=== PATIENT | male | born 1970 | race Caucasian/White ===

== ENCOUNTER 2017-08-10 20:51 | Inpatient (IN) | payer SELFPAY ==
[~2017-08-10] VITALS: Ht 172.7 cm; Wt 71.0 kg
[2017-08-11] MEDS ORDERED: diphenhydrAMINE HCL 50 MG CAP - HS PRN PO (02:15)
[2017-08-11] MEDS ORDERED: diphenhydrAMINE HCL 50 MG/ML VIAL - HS PRN IM (02:15)
[2017-08-11] MEDS ORDERED: ACETAMINOPHEN 325 MG TAB PO PRN (02:15)
[2017-08-11] MEDS ORDERED: hydrOXYzine HCL 50 MG TAB PO PRN (02:15)
[2017-08-11] MEDS ORDERED: LORazepam 1 MG TAB PO PRN (02:15)
[2017-08-11] MEDS ORDERED: LORazepam 2 MG/ML VIAL IM PRN (02:15)
[2017-08-11] MEDS ORDERED: ALUMINUM/MAGNESIUM/SIMETH 30 ML CUP PO PRN (02:15)
[2017-08-11] MEDS ORDERED: MAGNESIUM HYDROXIDE SUSP 30 ML CUP PO PRN (02:15)
[2017-08-11 02:20] VITALS: BP 107/70; PULSE 115; RESP 16; TEMP 97.1; O2SAT 98
[2017-08-11] MEDS: NICOTINE 21 MG/24 HR PATCH T-DERMAL SCH (09:00)
--- NOTE | 2017-08-11 11:46 | HHI.HP ---
Provisional Diagnosis Admission Date Aug 11, 2017 at 01:20 [place]. 1. Adjustment disorder with mixed disturbance of emotions and conduct 2. Polysubstance abuse [place]. Deferred Certification of Person's Competence To Provide Express and Informed Consent I have personally examined Thong Daugherty , a person being served at [facility] on, Aug 11, 2017 11:46. Express and informed consent means consent voluntarily given in writing, by a competent person, after sufficient explanation and disclosure of the subject matter involved to enable the person to make a knowing and willful decision without any element of force, fraud, deceit, duress, or other form of constraint or coercion. This person is 18 years of age or older, is not now known to be incompetent to consent to treatment with a guardian advocate, and does not have a health care surrogate or proxy currently making medical treatment decisions. I have found this person to be one of the following: [x] Competent to provide express and informed consent, as defined above, for voluntary admission to this facility and is competent to provide express and informed consent for treatment. He/she has the consistent capacity to make well reasoned, willful, and knowing decisions concerning his or her medical or mental health treatment. The person fully and consistently understands the purpose of the admission for examination/placement and is fully capable of personally exercising all rights assured under [place] Incompetent to provide express and informed consent to voluntary admission, and this is incompetent to provide express and informed consent to treatment. The person must be transferred to involuntary status and a petition for a guardian advocate filed with the Circuit Court. [] Refusing to provide express and informed consent to voluntary admission but is competent to provide express and informed consent for treatment. The person must be discharged or transferred to involuntary status. Form shall be completed within 24 hours of a person's arrival at the receiving facility and filed in the clinical record of each person: 1. Admitted on a voluntary basis 2. Permitted to provide express and informed consent to his/her own treatment 3. Allowed to transfer from involuntary to voluntary status 4. Prior to permitting a person to consent to his or her own treatment after having been previously found incompetent to consent to treatment. History of Present Illness Capacity: Has Capacity Psych Chief Complaint: self-injurious behavior HPI Mr. Daugherty is a 46-year-old male with no reported past psychiatric history who presents in transfer from [facility] under a Shields act. Documentation from outside hospital reviewed. Narrative is somewhat convoluted but apparently the patient was Shields acted by law enforcement on 07/27 because he "stated he could see someone through the glass being murdered with 3 little kids trying to help the injured person." Apparently, the patient was being transferred to an inpatient psychiatric unit when he eloped and ran into a house and cut himself on his neck, forearms, chest and legs. Patient was subsequently admitted to the medical unit at [facility]. Reviewing our electronic medical record, I note this is patient's first visit to [facility]. Patient seen and examined with nurse. Chart reviewed. Case discussed with nursing staff. On my examination today, the patient is clinically sober. He reports that his presenting psychosis was secondary to use of a substance that he thought was Cailin but now suspects was not. He says that this substance "made me think someone was getting killed, so I called the expander machine operator who Alyson acted me. I thought the killers were in the hospital." He reports that as he was being transported to the inpatient unit as noted above he became increasingly convinced that he was being transported to a facility where he would be tortured and murdered and so he eloped from the transport and "ran into a house , picked up a knife, I thought the police were impostors, and so I cut myself to try to bleed out." He denies any suicidal or homicidal ideation, intent or plan on direct questioning now. He is quite remorseful for his behavior. He was apparently started on some Seroquel at the outside hospital, but he is not sure if he needs it any longer and would like to be on as few medications as possible. He denies any audiovisual hallucinations. I can elicit no delusional material presently. There is no evidence of any impairment in reality construction at this time. Mood is stable, and I can elicit no depressive or hypomanic/manic symptoms. Remainder of the psychiatric ROS is negative. No acute physical complaints. Past psychiatric history: Patient denies a history of psychiatric diagnosis. He denies a history of inpatient or outpatient psychiatric treatment. He denies a history of previous suicide attempts or violent behavior. Family history: Patient denies any family history of serious mental illness or suicide. Chemical dependency history: The patient abuses MDMA as well as cannabis and occasional cocaine. He also drinks 2 beers a day. No other substance use reported. Social history: The patient is . He has a daughter. 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 He denies any history. Denies any legal history. Denies any access to guns or firearms. He is a [employer]. He denies any history of physical, verbal or sexual abuse. Past Family Social History Coded Allergies: No Known Allergies (Unverified , 08/11/17) Past Medical History Patient denies any past medical history Current Medications Medications (Trade) Dose Ordered Sig/Julianne Route Start Time Stop Time Status Last Admin (Ativan) 1 mg Q6H PRN PO 08/11/17 02:15 (Ativan Inj) 1 mg Q6H PRN IM 08/11/17 02:15 (Atarax) 50 mg Q6H PRN PO 08/11/17 02:15 (Benadryl) 50 mg HS PRN PO 08/11/17 02:15 (Benadryl Inj) 50 mg HS PRN IM 08/11/17 02:15 (Tylenol) 650 mg Q4H PRN PO 08/11/17 02:15 (Milk Of Magnesia Liq) 30 ml DAILY PRN PO 08/11/17 02:15 (Mag-Al Plus Susp Liq) 30 ml Q6H PRN PO 08/11/17 02:15 (Habitrol 21 Mg Patch.24 Hr) 1 patch DAILY T-DERMAL 08/11/17 09:00 Miscellaneous Information 1 HS T-DERMAL 08/11/17 21:00 Patient's Strengths (min. 2) In a monitored setting. Verbally fluent. Physical Exam Physical exam completed by provider at outside hospital. On my examination today, the patient appears to be in no acute physical distress. No motor abnormalities noted. No signs of intoxication or withdrawal noted. Numerous healing lacerations noted on neck, bilateral forearms, chest and legs. Laboratories and vitals signs reviewed: Vital Signs Vital Signs Date Time Temp Pulse Resp B/P (MAP) Pulse Ox O2 Delivery O2 Flow Rate FiO2 08/11/17 02:20 97.1 115 16 107/70 (82) 98 Lab Results Laboratories from outside hospital reviewed: BMP unremarkable. CBC reveals mild leukocytosis at 11.8. 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 Mental Status Examination Appearance: Appropriate Consciousness: Alert Orientation: x4 Motor Activity: Normal gait Speech: Unremarkable Language: Adequate Fund of Knowledge: Adequate Attention and Concentration: Adequate Memory: Unremarkable Mood: Appropriate Affect: Appropriate Thought Process & Associations: Intact Thought Content: Appropriate Hallucination Type: None Delusion Type: None Suicidal Ideation: No Suicidal Plan: No Suicidal Intention: No Homicidal Ideation: No Homicidal Plan: No Homicidal Intention: No Mental Status Exam Remarks Insight and judgment are presently unclear. Assessment & Plan Problem List: (1) Adjustment disorder with mixed disturbance of emotions and conduct ICD Codes: F43.25 - Adjustment disorder with mixed disturbance of emotions and conduct (2) Polysubstance abuse ICD Codes: F19.10 - Other psychoactive substance abuse, uncomplicated Assessment & Plan 46-year-old male with psychiatric history as detailed above who presents in transfer from outside hospital under a Shields act. On my examination today, the patient reports that his delusional beliefs prior to admission and presenting self injury were caused by use of a substance that he thought was MDMA. Presently, I cannot appreciate any signs or symptoms consistent with a mental illness as defined under the Shields act, and I think the patient's explanation for his behavior is quite possibly the correct one. Patient is willing to remain on the inpatient psychiatric unit for observation and would like to try to taper his Seroquel as he is not sure if he really needs this medication. I will plan to admit the patient to the inpatient psychiatric unit for observation and medication adjustment. Admitted inpatient. Voluntary status. Taper Seroquel to 100 mg in the morning and 200 mg at bedtime as it seems possible, perhaps likely that the patient does not have a mood or psychotic disorder for this to treat. I will not discontinue this medication abruptly but will rather taper. Consulted wound care for advice in managing patient's numerous lacerations. I will continue the lisinopril started at outside hospital as well as the Augmentin which was apparently started for sinusitis. Vitals every shift. Counselor to see. Collateral information. Disposition planning. Estimated length of stay: 3-5 days. Discharge Planning Pending outcome of observation Request HC Surrog/Guard Advoc?: No Juliano Cedillo MD Aug 11, 2017 11:46
--- NOTE | 2017-08-11 15:52 | PD.CONS ---
HPI Service [facility] Hospitalists Consult Requested By Psychiatric services Reason for Consult Medical management Primary Care Physician Unknown Diagnoses: History of Present Illness This is a 46-year-old male with past medical history significant for polysubstance abuse including MDMA, cannabis and cocaine who was admitted to [facility] inpatient psychiatric unit as a transfer from [facility] where patient was Shields acted by law-enforcement on 07/27 because as he stated "he could see someone through the glass being murdered with 3 little kids trying to help injured person". Reportedly, patient was being transferred to an inpatient psychiatric unit where he eloped ran into a house and cut himself on the neck, forearms abdomen and legs. Patient was admitted to medical unit [place]. Hospitalist services have been consulted for medical management. Patient seen and examined. Patient states that he thinks he got a hold of some "bad Cailin". He denies any suicidal ideation. He denies any previous history of mental disorder. He denies any complaints of fever or chills. He denies any chest pain or shortness of breath. He does endorse some abdominal tenderness around the incision sites. He denies any nausea, vomiting or abdominal pain. He denies any hematuria, dysuria hematochezia or melena. Review of Systems Except as stated in HPI: all other systems reviewed are Neg Past Family Social History Allergies: Coded Allergies: No Known Allergies (Unverified , 08/11/17) Past Medical History Polysubstance abuse with cannabis, cocaine and MDMA Past Surgical History Tonsillectomy Reported Medications Patient denies taking any medications at home Active Ordered Medications Current Medications Medications (Trade) Dose Ordered Sig/Julianne Route Start Time Stop Time Status Last Admin (Tylenol) 650 mg Q4H PRN PO 08/11/17 02:15 (Milk Of Magnesia Liq) 30 ml DAILY PRN PO 08/11/17 02:15 (Mag-Al Plus Susp Liq) 30 ml Q6H PRN PO 08/11/17 02:15 (Habitrol 21 Mg Patch.24 Hr) 1 patch DAILY T-DERMAL 08/11/17 09:00 Miscellaneous Information 1 HS T-DERMAL 08/11/17 21:00 (SEROquel) 100 mg DAILY PO 08/12/17 09:00 (SEROquel) 200 mg HS PO 08/11/17 21:00 (Prinivil) 10 mg DAILY PO 08/12/17 09:00 (Augmentin) 875 mg Q12HR PO 08/11/17 21:00 08/18/17 20:59 Family History Mother, diabetes and hypertension Social History Patient denies any tobacco use. Reports alcohol consumption of 2 beers per day. He has a history of polysubstance abuse including marijuana, cocaine and MDMA. Physical Exam Vital Signs Vital Signs Date Time Temp Pulse Resp B/P (MAP) Pulse Ox O2 Delivery O2 Flow Rate FiO2 08/11/17 02:20 97.1 115 16 107/70 (82) 98 Physical Exam GENERAL: This is a well-nourished, well-developed male patient, in no apparent distress. Appears younger than stated age. Pleasant and calm. Awake and alert. SKIN: Cool and dry. Numerous healing lacerations noted on the neck, bilateral forearms, abdomen and legs. HEAD: Atraumatic. Normocephalic. No temporal or scalp tenderness. EYES: Extraocular motions intact. No scleral icterus. No injection or drainage. ENT: Nose without bleeding or purulent drainage. Throat without erythema, tonsillar hypertrophy or exudate. Uvula midline. Airway patent. NECK: Trachea midline. No lymphadenopathy. Supple, nontender, no meningeal signs. CARDIOVASCULAR: Regular rate and rhythm without murmurs, gallops, or rubs. RESPIRATORY: Clear to auscultation. Breath sounds equal bilaterally. No wheezes , rales, or rhonchi. GASTROINTESTINAL: Abdomen soft, nondistended. No hepato-splenomegaly, or palpable masses. No guarding. (+)tenderness around the laceration sites on the abdomen. MUSCULOSKELETAL: Extremities without clubbing, cyanosis, or edema. No joint tenderness, effusion, or edema noted. No calf tenderness. NEUROLOGICAL: Awake and alert. Cranial nerves II through XII grossly intact. Motor and sensory grossly within normal limits. Five out of 5 muscle strength in all muscle groups. No focal neurologic findings appreciated. Normal speech. Assessment and Plan Assessment and Plan 46-year-old male with past medical history significant for polysubstance abuse including MDMA, cannabis and cocaine who was admitted to [facility] inpatient psychiatric unit as a transfer from [facility] where patient was Shields acted by law-enforcement and attempted to commit suicide by cutting himself on the arms, neck, abdomen and legs. Patient admitted to [facility] inpatient psychiatric unit under voluntary status. Hospitalist services have been consulted for medical management. Adjustment disorder Polysubstance abuse Self injury, likely secondary to polysubstance effect/delusional thoughts -Management per psychiatric team -Lacerations appear to be healing well with no evidence of active infection -Wound care consulted by primary team -Discussed with patient the importance of cessation of all illicit drug use Hypertensive -Patient denies previous history of hypertension -Likely reactive/situational -On lisinopril 10 mg -BP actually low at 107/70. Would hold lisinopril for now and resume if BP worsens Sinusitis -Continue on previously prescribed Augmentin DVT prophylaxis -Patient is ambulatory Thank you very kindly for this consultation. Patient appears stable from a hospitalist standpoint. Will sign off for now. Please reconsult if needed. Discussed Condition With Patient, nursing staff Manuela Duran Aug 11, 2017 15:52
[2017-08-11 17:40] VITALS: BP 159/76; PULSE 99; RESP 17; TEMP 98.2; O2SAT 99
[2017-08-11] MEDS: REMOVE OLD NICOTINE PATCH T-DERMAL SCH (21:00)
[2017-08-11] MEDS: AMOXICILLIN/CLAVULANATE K 875 MG TAB PO SCH (22:13)
[2017-08-11] MEDS: QUEtiapine FUMARATE 200 MG TAB PO SCH (22:13)
[2017-08-12 06:16] VITALS: BP 111/68; PULSE 91; RESP 16; TEMP 97.9; O2SAT 95
[2017-08-12] MEDS: NICOTINE 21 MG/24 HR PATCH T-DERMAL SCH (09:00)
[2017-08-12] MEDS ORDERED: LISINOPRIL 10 MG TAB PO SCH (09:00)
[2017-08-12 09:38] LABS: BICARBONATE 25.4 MEQ/L (21.0-32.0); BLOOD UREA NITROGEN 22 MG/DL (7-18); CALCIUM 8.9 MG/DL (8.5-10.1); CHLORIDE 100 MEQ/L (98-107); CREATININE 1.33 MG/DL (0.60-1.30); GLOMERULAR FILTRATION RATE 58 ML/MIN (>89); GLUCOSE,RANDOM 108 MG/DL (74-106); SODIUM (NA) 136 MEQ/L (136-145)
--- NOTE | 2017-08-12 09:38 | HHI.PYPN ---
Subjective Chief Complaint: self-injurious behavior Remarks Patient was seen and case discussed with nursing. Patient is grateful that he is alive. He is tearful when discussing his bizarre behavior. Says he is making a pack to stop using drugs. He denies a history of psychotic behavior when not on drugs. He is clear minded, logical and denies auditory visual hallucinations. Tolerating his medications well. Denies suicidal or homicidal ideation intent or plan Mental Status Examination Appearance: Appropriate Consciousness: Alert Orientation: x4 Motor Activity: Normal gait Speech: Unremarkable Language: Adequate Fund of Knowledge: Adequate Attention and Concentration: Adequate Memory: Unremarkable Mood: Appropriate Affect: Appropriate Thought Process & Associations: Intact Thought Content: Appropriate Hallucination Type: None Delusion Type: None Suicidal Ideation: No Suicidal Plan: No Suicidal Intention: No Homicidal Ideation: No Homicidal Plan: No Homicidal Intention: No Results Labs Test 08/12/17 08:29 Vitals/IOs Vital Signs Date Time Temp Pulse Resp B/P (MAP) Pulse Ox O2 Delivery O2 Flow Rate FiO2 08/12/17 06:16 97.9 91 16 111/68 (82) 95 Intake and Output 08/12/17 08/12/17 08/13/17 08:00 16:00 00:00 Intake Total 360 ml Balance 360 ml Assessment & Plan Problem List: (1) Adjustment disorder with mixed disturbance of emotions and conduct ICD Codes: F43.25 - Adjustment disorder with mixed disturbance of emotions and conduct (2) Polysubstance abuse ICD Codes: F19.10 - Other psychoactive substance abuse, uncomplicated Assessment & Plan Continue current treatment plan Justification for Cont. Inpt. Patient will decompensate in a less restrictive setting Request HC Surrog/Guard Advoc?: No Matthew Walsh DO Aug 12, 2017 09:38
[2017-08-12 09:39] LABS: CHOLESTEROL 142 MG/DL (120-200); TRIGLYCERIDES 119 MG/DL (42-150)
[2017-08-12 09:41] LABS: CHOLESTEROL/ HDL RATIO 5.68 RATIO; LDL CHOLESTEROL 93 MG/DL (0-99)
[2017-08-12] MEDS: AMOXICILLIN/CLAVULANATE K 875 MG TAB PO SCH ×2 (10:07→20:52)
[2017-08-12] MEDS: QUEtiapine FUMARATE 100 MG TAB PO SCH (10:08)
[2017-08-12 13:10] LABS: HEMOGLOBIN A1C 5.6 % (4.3-6.0)
[2017-08-12 18:15] VITALS: BP 122/67; PULSE 94; RESP 16; TEMP 98.1; O2SAT 97
[2017-08-12] MEDS: QUEtiapine FUMARATE 200 MG TAB PO SCH (20:52)
[2017-08-12] MEDS: REMOVE OLD NICOTINE PATCH T-DERMAL SCH (21:00)
[2017-08-13 06:54] VITALS: BP 119/65; PULSE 83; RESP 16; TEMP 97.9; O2SAT 99
[2017-08-13] MEDS: QUEtiapine FUMARATE 100 MG TAB PO SCH (08:26)
[2017-08-13] MEDS: AMOXICILLIN/CLAVULANATE K 875 MG TAB PO SCH ×2 (08:26→20:08)
[2017-08-13] MEDS: NICOTINE 21 MG/24 HR PATCH T-DERMAL SCH (08:28)
--- NOTE | 2017-08-13 12:58 | PD.WCN.NOT ---
Wound Consult Additional Information: Patient not seen, Spoke with [facility] psych [facility] unit. Yo assessed patient with dry intact scabs and dry,intact steri strips to neck and limbs. Per RN there is no drainage or erythema to periwound. Please continue to keep steri strips and scabs clean and dry. Vocera wound care nurse for wound deterioration. Christiane Cervantes [facility] Aug 13, 2017 12:58
--- NOTE | 2017-08-13 17:11 | HHI.PYPN ---
Subjective Chief Complaint: self-injurious behavior Remarks Patient seen for follow-up, chart reviewed. Discussion nursing staff reported the patient has been compliant with treatment no behavioral disturbances. Patient was found in the room notably, cooperative. Patient recounts the circumstances of brought to the hospital stating that he had been using mildly for one half years and recently had taken a drug which he thought was mildly and had made him very paranoid and psychotic believing he was being taken to a "torture form" and had resulted in his self-injurious behavior. Patient noted to be tearful during interview stated that this was a "scary experience" stating that he had never had a episodes such as this in the past when using drugs and states that he no longer wants to engage in this sort of activity and putting his life in danger again. Patient states he has not had any prior suicide attempt, stating that he does not feel suicidal, he is happy about being employed for the past 24 years and wants to be alive. Patient state he spoke with his daughter and brother over the weekend which she was happy about. Collateral contacts: - Shyla (daughter) - [phone] - Jaime (brother) - [phone] Review of Systems Except as stated in HPI: all other systems reviewed are Neg Mental Status Examination Appearance: Appropriate Consciousness: Alert Orientation: x4 Motor Activity: Normal gait Speech: Unremarkable Language: Adequate Fund of Knowledge: Adequate Attention and Concentration: Adequate Memory: Unremarkable Mood: Appropriate Affect: Appropriate Thought Process & Associations: Intact Thought Content: Appropriate Hallucination Type: None Delusion Type: None Suicidal Ideation: No Suicidal Plan: No Suicidal Intention: No Homicidal Ideation: No Homicidal Plan: No Homicidal Intention: No Insight: Fair Judgment: Impulsive Results Vitals/IOs Vital Signs Date Time Temp Pulse Resp B/P (MAP) Pulse Ox O2 Delivery O2 Flow Rate FiO2 08/13/17 06:54 97.9 83 16 119/65 (83) 99 Assessment & Plan Problem List: (1) Adjustment disorder with mixed disturbance of emotions and conduct ICD Codes: F43.25 - Adjustment disorder with mixed disturbance of emotions and conduct (2) Polysubstance abuse ICD Codes: F19.10 - Other psychoactive substance abuse, uncomplicated Assessment & Plan Patient this time denying any depressive, manic or psychotic symptoms although recognizes that his recent drug use may have been responsible for his recent actions and suicide attempt in the context of intoxication. Patient this time denying suicide ideation, reports having spoke with the family. Collateral formation pending from family which would assist in having patient have support and for safe discharge planning. Patient reports being interested in engaging in outpatient rehabilitation program. Patient to continue current treatment. Continue to monitor mood and behavior. Discharge planning in progress. Justification for Cont. Inpt. At risk of further decompensation at lower level of care. Discharge Planning Patient return back to his residence when psychiatrically stable. Request HC Surrog/Guard Advoc?: No Eliot Yan MD Aug 13, 2017 17:10
[2017-08-13 17:44] VITALS: BP 142/93; PULSE 96; RESP 18; TEMP 98.2; O2SAT 99
[2017-08-13] MEDS: QUEtiapine FUMARATE 200 MG TAB PO SCH (20:08)
[2017-08-13] MEDS: REMOVE OLD NICOTINE PATCH T-DERMAL SCH (20:08)
[2017-08-14 05:48] VITALS: BP 107/66; PULSE 83; RESP 18; TEMP 98.3
[2017-08-14] MEDS: AMOXICILLIN/CLAVULANATE K 875 MG TAB PO SCH (08:15)
[2017-08-14] MEDS: QUEtiapine FUMARATE 100 MG TAB PO SCH (08:16)
[2017-08-14] MEDS: NICOTINE 21 MG/24 HR PATCH T-DERMAL SCH (09:00)
[2017-08-14] MEDS ORDERED: risperiDONE EXT REL INJ 37.5 MG/2 ML VIAL IM SCH (11:30)
[2017-08-14] MEDS ORDERED: AMOX875T2 PO (12:09)
[2017-08-14] MEDS ORDERED: QUET1TAB8 PO (12:09)
[2017-08-14] MEDS ORDERED: QUET1TAB9 PO (12:09)
--- NOTE | 2017-08-14 12:14 | HHI.DS ---
Psychiatry Discharge Summary Inpatient Psychiatric care?: Yes Advance Directive: No Reason Not Provided: NONE Mental Health AdvanceDirective: No Health Care Proxy: No Admission Admission Date Aug 11, 2017 at 01:20 Admission Diagnosis: (1) Adjustment disorder with mixed disturbance of emotions and conduct ICD Code: F43.25 - Adjustment disorder with mixed disturbance of emotions and conduct (2) Polysubstance abuse ICD Code: F19.10 - Other psychoactive substance abuse, uncomplicated Brief History Mr. Daugherty is a 46-year-old male with no reported past psychiatric history who presents in transfer from [facility] under a Shields act. Documentation from outside hospital reviewed. Narrative is somewhat convoluted but apparently the patient was Shields acted by law enforcement on 07/27 because he "stated he could see someone through the glass being murdered with 3 little kids trying to help the injured person." Apparently, the patient was being transferred to an inpatient psychiatric unit when he eloped and ran into a house and cut himself on his neck, forearms, chest and legs. Patient was subsequently admitted to the medical unit at [facility]. Reviewing our electronic medical record, I note this is patient's first visit to [place]. Patient seen and examined with nurse. Chart reviewed. Case discussed with nursing staff. On my examination today, the patient is clinically sober. He reports that his presenting psychosis was secondary to use of a substance that he thought was Cailin but now suspects was not. He says that this substance "made me think someone was getting killed, so I called the sales coach who Shields acted me. I thought the killers were in the hospital." He reports that as he was being transported to the inpatient unit as noted above he became increasingly convinced that he was being transported to a facility where he would be tortured and murdered and so he eloped from the transport and "ran into a house , picked up a knife, I thought the police were impostors, and so I cut myself to try to bleed out." He denies any suicidal or homicidal ideation, intent or plan on direct questioning now. He is quite remorseful for his behavior. He was apparently started on some Seroquel at the outside hospital, but he is not sure if he needs it any longer and would like to be on as few medications as possible. He denies any audiovisual hallucinations. I can elicit no delusional material presently. There is no evidence of any impairment in reality construction at this time. Mood is stable, and I can elicit no depressive or hypomanic/manic symptoms. Remainder of the psychiatric ROS is negative. No acute physical complaints. Past psychiatric history: Patient denies a history of psychiatric diagnosis. He denies a history of inpatient or outpatient psychiatric treatment. He denies a history of previous suicide attempts or violent behavior. Family history: Patient denies any family history of serious mental illness or suicide. Chemical dependency history: The patient abuses MDMA as well as cannabis and occasional cocaine. He also drinks 2 beers a day. No other substance use reported. Social history: The patient is . He has a daughter. 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 He denies any history. Denies any legal history. Denies any access to guns or firearms. He is a [employer]. He denies any history of physical, verbal or sexual abuse. Tobacco Use In Past 30 Days: No Tobacco Past 30 Days Alcohol Use: 4 or More Times Per Week Hospital Course Patient is a 46-year-old male with no reported past psychiatric history who presents in transfer from [facility] under Shields acted by law enforcement on 07/27/17 because he "stated he could see someone through the glass being murdered with 3 little kids trying to help the injured person." Apparently, the patient was being transferred to an inpatient psychiatric unit when he eloped and ran into a house and cut himself on his neck, forearms, chest and legs. Patient was subsequently admitted to the medical unit at [facility] and later was transferred to the inpatient psychiatry for further evaluation and management. Patient was started on quetiapine on his initial admission prior to his arrival to [place] and was titrated to 100mg daily/200mg HS for mood stabilization and psychosis which he tolerated well with no notable adverse drug reactions. Patient had wounds with continuous evaluation by the primary medical team with no complications and was healing well. He was noted with improvement in mood, noted to have endorsed any perceptual disturbances nor or any delusions; denied having any suicidal or homicidal ideations and attributing his recent self injuries to his intoxication at that time. He was observed by staff to not have had any behavioral disturbances, not having made any suicidal or homicidal statements and maintained stable mood through admission and was noted to participate with staff adequately. Patient was noted to participate in self care, engaging with staff and maintaining adequate hygiene. Patient reported feeling more hopeful, future oriented and motivated to engage in NA groups and achieve sobriety from substance use and continue in his outpatient follow up. Treatment team was able to set up outpatient follow up appointments which the patient can continue his current medication regimen. Upon discharge patient stated that she was feeling good, reported well with the treatment, as well as motivation to continue recommendations and denied any SI, HI, perceptual disturbances or delusions. Collateral information obtained from patients brother reported that patient was at baseline and had no reservation or safety concerns with patient being discharge and mentioned being supportive with his aftercare. Weighing the acute, chronic, and protective factors and based on the available evidence, I boating safety officer to a reasonable degree of medical certainty that the patient is at low imminent risk of harm to self or others from a mental illness as defined under the Shields act and his level of function is adequate as observed on the unit for planned level of outpatient care. He was counseled regarding warning signs for need to return to the psychiatric emergency room as part of a general safety plan. Patient advised to call 911 or go nearest ED in case of emergency. Patient agreed with plan. Results Blood Pressure 107 / 66 Vital Signs Date Time Temp Pulse Resp B/P (MAP) Pulse Ox O2 Delivery O2 Flow Rate FiO2 08/14/17 05:48 98.3 83 18 107/66 (80) 08/13/17 17:44 99 Laboratory Tests Test 08/12/17 08:29 Blood Urea Nitrogen 22 MG/DL (7-18) Creatinine 1.33 MG/DL (0.60-1.30) Random Glucose 108 MG/DL (74-106) Estimat Glomerular Filtration Rate 58 ML/MIN (>89) HDL Cholesterol 25.0 MG/DL (40.0-60.0) Laboratory Results Test 08/12/17 08:29 Cholesterol Level 142 MG/DL (120-200) HDL Cholesterol 25.0 MG/DL (40.0-60.0) Hemoglobin A1c 5.6 % (4.3-6.0) LDL Cholesterol 93 MG/DL (0-99) Triglycerides Level 119 MG/DL (42-150) Summary of Procedures None Pending results at discharge: No Medications # of Antipsychotic meds at D/C: 1 Approp Antipsych med options 1 - Minimum of three failed multiple trials of monotherapy. 2 - Documented plan to taper to monotherapy due to previous use of multiple meds OR cross-taper in progress at D/C. 3 - Documentation of augmentation of Clozapine. 4 - Justification other than those listed in allowable values 1-3, document here : Discharge Discharge Date: Aug 14, 2017 Discharge Diagnosis: (1) Adjustment disorder with mixed disturbance of emotions and conduct ICD Code: F43.25 - Adjustment disorder with mixed disturbance of emotions and conduct (2) Polysubstance abuse ICD Code: F19.10 - Other psychoactive substance abuse, uncomplicated Pt Condition on Discharge: Stable Discharge Disposition: Discharge Home Discharge Instructions Diet Instructions: As Tolerated, No Restrictions Activities you can perform: Regular-No Restrictions Discharge Time > 30 minutes Mental Status Examination Appearance: Appropriate Consciousness: Alert Orientation: x4 Motor Activity: Normal gait Speech: Unremarkable Language: Adequate Fund of Knowledge: Adequate Attention and Concentration: Adequate Memory: Unremarkable Mood: Appropriate Affect: Appropriate Thought Process & Associations: Intact Thought Content: Appropriate Hallucination Type: None Delusion Type: None Suicidal Ideation: No Suicidal Plan: No Suicidal Intention: No Homicidal Ideation: No Homicidal Plan: No Homicidal Intention: No Insight: Adequate Judgment: Adequate Discharge/Advance Care Plan Health Problems: (1) Adjustment disorder with mixed disturbance of emotions and conduct (2) Polysubstance abuse Goals to promote your health * To prevent worsening of your condition and complications * To maintain your health at the optimal level Directions to meet your goals Take your medications as prescribed Follow your dietary instruction Follow activity as directed Keep your appointments as scheduled Take your immunizations and boosters as scheduled If your symptoms worsen call your PCP, if no PCP go to Urgent Care Center or Emergency Room For 24/7 questions related to your inpatient stay or results of tests pending at discharge, please contact Dr. Eliot Yan at Smoking is Dangerous to Your Health. Avoid second hand smoking Eliot Yan MD Aug 14, 2017 12:14
== END 2017-08-14 15:00 | disposition home or self-care (01) | DRG 882 ==
LOC: H270 08-11 01:20 → H260 08-11 14:55
PROVIDERS: ADMIT Student in an Organized Health Care Education/Training Program; ATTEND Student in an Organized Health Care Education/Training Program
DX: F43.25 Adjustment disorder with mixed disturbance of emotions and conduct (principal); I10 Essential (primary) hypertension; F19.10 Other psychoactive substance abuse, uncomplicated; F14.10 Cocaine abuse, uncomplicated; F12.10 Cannabis abuse, uncomplicated; T14.8XXD Other injury of unspecified body region, subsequent encounter; X78.1XXD Intentional self-harm by knife, subsequent encounter
CPT/HCPCS: 80048; 80061; 83036